=== PATIENT | female | born 1960 | race Caucasian/White ===

== ENCOUNTER 2017-08-15 13:14 | Emergency (ER) | payer OTHER ==
[~2017-08-15] VITALS: Ht 170.2 cm; Wt 81.8 kg
[2017-08-15 13:32] VITALS: BP 144/80; PULSE 96; RESP 12; TEMP 99.6; O2SAT 94
[2017-08-15 13:35] VITALS: BP 144/80; PULSE 96; RESP 18; TEMP 99.6; O2SAT 94
[2017-08-15] MEDS ORDERED: DULE200A INH (13:56)
[2017-08-15] MEDS ORDERED: SODIUM CHLORIDE 0.9% FLUSH 10 ML FLUSH IV FLUSH PRN (14:00)
[2017-08-15 14:30] LABS: AUTOMATED NEUTROPHIL # 11.3 TH/MM3 (1.8-7.7); BASOPHIL % 0.2 % (0.0-2.0); EOSINOPHIL # 0.1 TH/MM3 (0-0.4); EOSINOPHIL % 0.7 % (0.0-4.0); HEMATOCRIT 40.8 % (35.0-46.0); HEMOGLOBIN 13.9 GM/DL (11.6-15.3); LYMPH % 11.5 % (9.0-44.0); LYMPHOCYTE # 1.6 TH/MM3 (1.0-4.8); MEAN CELL VOLUME 96.4 FL (80.0-100.0); MEAN CORPUSCULAR HEMOGLOBIN 32.8 PG (27.0-34.0); MEAN CORPUSCULAR HGB CONC 34.1 % (32.0-36.0); MEAN PLATELET VOLUME 7.8 FL (7.0-11.0); MONO % 8.4 % (0.0-8.0); MONOCYTE # 1.2 TH/MM3 (0-0.9); NEUT % 79.2 % (16.0-70.0); PLATELET COUNT 222 TH/MM3 (150-450); RED BLOOD COUNT 4.24 MIL/MM3 (4.00-5.30); RED CELL DISTRIBUTION WIDTH 13.2 % (11.6-17.2); WHITE BLOOD COUNT 14.3 TH/MM3 (4.0-11.0)
[2017-08-15] MEDS ORDERED: SODIUM CHLOR 0.9% 1000 ML INJ 1,000 ML IV ONE (14:30)
[2017-08-15 14:51] LABS: ALBUMIN 3.8 GM/DL (3.4-5.0); AST (GOT) 18 U/L (15-37); BLOOD UREA NITROGEN 11 MG/DL (7-18); CALCIUM 8.7 MG/DL (8.5-10.1); CHLORIDE 104 MEQ/L (98-107); CREATININE 0.84 MG/DL (0.50-1.00); GLOMERULAR FILTRATION RATE 70 ML/MIN (>89); SODIUM (NA) 138 MEQ/L (136-145)
[2017-08-15 15:07] LABS: ALKALINE PHOSPHATASE 82 U/L (45-117); ALT (GPT) 33 U/L (10-53); GLUCOSE,RANDOM 114 MG/DL (74-106); TOTAL BILIRUBIN ADULT 1.1 MG/DL (0.2-1.0)
[2017-08-15 15:08] LABS: BACTERIA, URINE RARE /hpf; BILIRUBIN, URINE NEG (NEG); BLOOD, URINE SMALL (NEG); GLUCOSE,URINE NEG (NEG); KETONE, URINE NEG (NEG); MUCUS URINE FEW /lpf (OCC); NITRITE,URINE NEG (NEG); SQUAMOUS EPITHELIAL CELL URINE 2 /hpf (0-5); URINE COLOR YELLOW (YELLW/STRAW); URINE LEUKOCYTE ESTERASE TRACE (NEG)
--- NOTE | 2017-08-15 16:00 | RADRPT ---
EXAM DATE: 08/15/2017 3:35 PM EDT AGE/SEX: 57 years / Female INDICATIONS: Abdomen pain. CLINICAL DATA: This is the patient's initial encounter. Patient reports that signs and symptoms have been present for 3 days and indicates a pain score of 5/10. MEDICAL/SURGICAL HISTORY: None. None. ORAL CONTRAST: No oral contrast ingested. RADIATION DOSE: 8.57 CTDI (mGy) COMPARISON: No prior exams available for comparison. TECHNIQUE: Multiple contiguous axial images were obtained through the abdomen and pelvis following b olus infusion of 100 ml Omnipaque 350 (iohexol) nonionic water-soluble contrast as a single exam do se. No oral contrast ingested. Using automated exposure control and adjustment of the mA and/or kV a ccording to patient size, the radiation dose was kept as low as reasonably achievable to obtain optim al diagnostic quality images. FINDINGS: Lower Lungs: Small area of infiltrate in the visualized right middle lobe. Slight atelectasis in the lateral left lung base. Liver: Diminished density in the liver consistent with steatosis. No evidence of focal liver mass or biliary ductal dilatation. Mild gallbladder wall thickening and enhancement with at least one small p robable gallstone. Spleen: Homogeneous density without enlargement. Pancreas: Unremarkable without mass or calcification. Kidneys: Normal in size and shape. No evidence of mass or hydronephrosis. Adrenal Glands: Unremarkable. Aorta: The aorta and proximal iliac vessels are grossly unremarkable without aneurysmal dilation. Bowel/Mesentery: Distal colonic diverticula. Focal wall thickening and pericolic inflammatory change s adjacent to the sigmoid colon. No evidence of extraluminal gas or fluid. No evidence of obstruction . Abdominal Wall: Intact. Retroperitoneum: No evidence of adenopathy in the retrocrural, para-aortic, or deep pelvic regions. Bladder: Contours are smooth. Reproductive Organs: No abnormal masses or calcifications seen. Inguinal: The inguinal region is unremarkable without evidence of adenopathy. Bony Structures: Unremarkable. CONCLUSION: 1. Sigmoid diverticulitis 2. Hepatic steatosis. 3. Gallstone and subjectively abnormal appearance of the gallbladder Electronically signed by: Catracho Rojas MD 08/15/2017 3:58 PM EDT
[2017-08-15] MEDS ORDERED: CIPROFLOXACIN 500 MG TAB PO ONE (16:45)
[2017-08-15] MEDS ORDERED: ONDANSETRON ODT 4 MG TAB PO ONE (16:45)
[2017-08-15] MEDS ORDERED: METR-1 PO (17:08)
[2017-08-15] MEDS ORDERED: CIPR500T2 PO (17:08)
[2017-08-15] MEDS ORDERED: TRAM50TA PO (17:08)
--- NOTE | 2017-08-15 17:08 | PD ---
HPI Chief Complaint: Abdominal Pain Time Seen by Provider: 13:56 Travel History International Travel<30 days: No Contact w/Intl Traveler<30days: No Traveled to known affect area: No History of Present Illness HPI Is a 57-year-old woman presents emerged from quitting of lower abdominal pain in the suprapubic area ongoing for the past week or so. No real change in her stools. She has worsening pain when she has a bowel movement or urinates. No dysuria however still little bit of subjective fevers, no definite chills. Otherwise had been feeling generally well and healthy. No history of diverticulitis in the past. No history of previous abdominal surgeries. No other complaints. History Past Medical History Narrative Medical Asthma Influenza Vaccination: No Social History Alcohol Use: Yes (wine couple times week) Tobacco Use: No Allergies-Medications (Allergen,Severity, Reaction): Coded Allergies: Penicillins (Verified Allergy, Intermediate, RASH, 08/15/17) Reported Meds & Prescriptions Reported Meds & Active Scripts Active Tramadol (Tramadol HCl) 50 Mg Tab 50 Mg PO Q8H PRN Flagyl (Metronidazole) 500 Mg Tab 500 Mg PO TID 10 Days Ciprofloxacin (Ciprofloxacin HCl) 500 Mg Tab 500 Mg PO BID 10 Days Reported Dulera 120 Act Inh (Mometasone-Formoterol 120 Act Inh) 200-5 Mcg/Act Inh 2 Puff INH BID Review of Systems Except as stated in HPI: all other systems reviewed are Neg Physical Exam Narrative GENERAL: Well-appearing 57-year-old woman, no acute distress per SKIN: Focused skin assessment warm/dry. HEAD: Atraumatic. Normocephalic. EYES: Pupils equal and round. No scleral icterus. No injection or drainage. ENT: No nasal bleeding or discharge. Mucous membranes pink and moist. NECK: Trachea midline. No JVD. CARDIOVASCULAR: Regular rate and rhythm. No murmur appreciated. RESPIRATORY: No accessory muscle use. Clear to auscultation. Breath sounds equal bilaterally. GASTROINTESTINAL: Minimal suprapubic tenderness. MUSCULOSKELETAL: No obvious deformities. No clubbing. No cyanosis. No edema. NEUROLOGICAL: Awake and alert. No obvious cranial nerve deficits. Motor grossly within normal limits. Normal speech. PSYCHIATRIC: Appropriate mood and affect; insight and judgment normal. Data Data Last Documented VS Vital Signs Date Time Temp Pulse Resp B/P (MAP) Pulse Ox O2 Delivery O2 Flow Rate FiO2 08/15/17 16:42 08/15/17 13:35 99.6 96 18 94 Orders Orders Complete Blood Count With Diff (08/15/17 13:59) Comprehensive Metabolic Panel (08/15/17 13:59) Lipase (08/15/17 13:59) Urinalysis - C+S If Indicated (08/15/17 13:59) Iv Access Insert/Monitor (08/15/17 13:59) NPO (08/15/17 13:59) Sodium Chloride 0.9% Flush (Ns Flush) (08/15/17 14:00) Ct Abd/Pel W Iv Contrast(Rout) (08/15/17 ) Sodium Chlor 0.9% 1000 Ml Inj (Ns 1000 M (08/15/17 14:30) Metronidazole (Flagyl) (08/15/17 18:00) Ciprofloxacin (Cipro) (08/15/17 16:45) Ondansetron Odt (Zofran Odt) (08/15/17 16:45) Ed Discharge Order (08/15/17 17:08) Labs Laboratory Tests Test 08/15/17 14:09 White Blood Count 14.3 TH/MM3 Red Blood Count 4.24 MIL/MM3 Hemoglobin 13.9 GM/DL Hematocrit 40.8 % Mean Corpuscular Volume 96.4 FL Mean Corpuscular Hemoglobin 32.8 PG Mean Corpuscular Hemoglobin Concent 34.1 % Red Cell Distribution Width 13.2 % Platelet Count 222 TH/MM3 Mean Platelet Volume 7.8 FL Neutrophils (%) (Auto) 79.2 % Lymphocytes (%) (Auto) 11.5 % Monocytes (%) (Auto) 8.4 % Eosinophils (%) (Auto) 0.7 % Basophils (%) (Auto) 0.2 % Neutrophils # (Auto) 11.3 TH/MM3 Lymphocytes # (Auto) 1.6 TH/MM3 Monocytes # (Auto) 1.2 TH/MM3 Eosinophils # (Auto) 0.1 TH/MM3 Basophils # (Auto) 0.0 TH/MM3 CBC Comment DIFF FINAL Differential Comment Urine Color YELLOW Urine Turbidity HAZY Urine pH 5.0 Urine Specific Sherrill 1.021 Urine Protein NEG mg/dL Urine Glucose (UA) NEG mg/dL Urine Ketones NEG mg/dL Urine Occult Blood SMALL Urine Nitrite NEG Urine Bilirubin NEG Urine Urobilinogen LESS THAN 2 mg/dL Urine Leukocyte Esterase TRACE Urine WBC 2 /hpf Urine Squamous Epithelial Cells 2 /hpf Urine Bacteria RARE /hpf Urine Mucus FEW /lpf Microscopic Urinalysis Comment CULT NOT INDICATED Blood Urea Nitrogen 11 MG/DL Creatinine 0.84 MG/DL Random Glucose 114 MG/DL Albumin 3.8 GM/DL Calcium Level 8.7 MG/DL Alkaline Phosphatase 82 U/L Aspartate Amino Transf (AST/SGOT) 18 U/L Alanine Aminotransferase (ALT/SGPT) 33 U/L Total Bilirubin 1.1 MG/DL Sodium Level 138 MEQ/L Potassium Level 3.8 MEQ/L Chloride Level 104 MEQ/L Carbon Dioxide Level 26.0 MEQ/L Anion Gap 8 MEQ/L Estimat Glomerular Filtration Rate 70 ML/MIN Lipase 119 U/L MDM Medical Decision Making Medical Screen Exam Complete: Yes Emergency Medical Condition: Yes Interpretation(s) LABS: CBC is remarkable for mild leukocytosis. CMP is unremarkable. Lipase is normal. Coags unremarkable. CT: Sigmoid diverticulitis. Hepatic steatosis. Gallstones and subjectively abnormal appearance of the gallbladder. Differential Diagnosis Diverticulitis, UTI, colitis, appendicitis, other Narrative Course Medical decision making. Is a well 57-year-old woman with mild suprapubic abdominal pain and tenderness. CT scan confirms diverticulitis. Return with antibiotics. Close outpatient follow-up. Diagnosis Primary Impression: Diverticulitis Additional Instructions: Take antibiotics as prescribed. Use tramadol sparingly as needed for severe pain. Use acetaminophen as needed for mild to moderate pain. Return to the emergency department if worsening pain, high fevers, bloody diarrhea, or any other new or worsening symptoms. Follow with her primary doctor for not completely well in 7-10 days. Med/Other Pt SpecificInfo: Prescription(s) given Scripts Tramadol (Tramadol) 50 Mg Tab 50 MG PO Q8H Y for PAIN, #12 TAB 0 Refills Prov: Casper Stapleton MD 08/15/17 Metronidazole (Flagyl) 500 Mg Tab 500 MG PO TID for Infection for 10 Days, TAB 0 Refills Prov: Casper Stapleton MD 08/15/17 Ciprofloxacin (Ciprofloxacin) 500 Mg Tab 500 MG PO BID for Infection for 10 Days, #20 TAB 0 Refills Prov: Casper Stapleton MD 08/15/17 Disposition: 01 DISCHARGE HOME Condition: Stable Casper Stapleton MD Aug 15, 2017 17:08
[2017-08-15] MEDS ORDERED: metroNIDAZOLE 500 MG TAB PO SCH (18:00)
[2017-08-15 18:29] LABS: TOTAL PROTEIN 7.6 GM/DL (6.4-8.2)
== END 2017-08-15 17:10 | disposition home or self-care (01) ==
LOC: NEPD 13:14
DX: K57.32 Diverticulitis of large intestine without perforation or abscess without bleeding (principal)
CPT/HCPCS: 74177; 80053; 81001; 83690; 85025; 96360; 96361; 99285; J7030